=== PATIENT | male | born 1990 | race African-American/Black ===

== ENCOUNTER → 2016-08-09 | Emergency (ER) | payer MEDICAID, OTHER ==
[~2016-08-09] VITALS: Ht 188 cm; Wt 78.5 kg
[~2016-08-09] MED LIST: INSU100C SQ; INSU200I SQ; INSULIN LISPRO 100 UNIT/ML VIAL SC STA; LACTATED RINGER'S 1,000 ML IV STA; LANT3I SC; SOD CHLORIDE 0.9% 2,000 ML IV STA
[2016-08-09 18:29] VITALS: Ht 188 cm; Wt 78.5 kg
[2016-08-09 19:34] LABS: ADD SCAN DIFF NO
[2016-08-09 19:41] LABS: BASOPHILS % 0.2 % (0.0-2.0); EOSINOPHILS # 0.1 10^3/ul (0.0-0.5); HEMATOCRIT 39.8 % (42.0-52.0); HEMOGLOBIN 14.1 g/dl (14.0-18.0); LYMPHOCYTES # 1.9 10^3/ul (0.8-2.9); MEAN CORPUSCULAR HEMOGLOBIN 30.6 pg (29.0-33.0); MEAN CORPUSCULAR HGB CONC 35.4 g/dl (32.0-37.0); MEAN CORPUSCULAR VOLUME 86.3 fl (82.0-101.0); MEAN PLATELET VOLUME 10.3 fl (7.4-10.4); MONOCYTE # 0.4 10^3/ul (0.3-0.9); MONOCYTES % 6.2 % (0.0-11.0); NEUTROPHIL # 3.8 10^3/ul (1.6-7.5); NEUTROPHILS % 61.3 % (39.0-77.0); PLATELET COUNT 293 10^3/UL (140-415); RED BLOOD COUNT 4.61 10^6/ul (4.70-6.10); RED CELL DISTRIBUTION WIDTH 11.3 % (11.5-14.5); WHITE BLOOD COUNT 6.1 10^3/ul (4.8-10.8)
[2016-08-09 19:51] LABS: POTASSIUM 5.1 mmol/L (3.5-5.1)
[2016-08-09 19:53] LABS: CREATININE 0.85 mg/dl (0.61-1.24)
[2016-08-09 19:54] LABS: CALCIUM 9.3 mg/dl (8.4-10.2)
--- NOTE | 2016-08-09 20:36 | ERD ---
ER Documentation Chief Complaint Date/Time DATE: 08/09/16 TIME: 20:34 Chief Complaint states blood sugar high, last insulin use at 12 noon HPI Patient is a 26-year-old male with diabetes who presents with high blood sugar. The patient says that his sugar is high. He has not had any insulin today and said that he did eat 2 hours ago. He said that he ran out of insulin earlier today. Upon review of old medical records the patient does have one previous visit to the ER for high sugar. He does not currently have a primary doctor. He said that he usually takes Humalog 15 units with meals. ROS All systems reviewed and are negative except as per history of present illness. Medications Home Meds Active Scripts Insulin Lispro (Humalog Kwikpen) 200 Unit/1 Ml Insuln.pen, 15 UNIT SQ AC MEALS, #1 EA Prov:BEENA CHIU MD 08/09/16 Reported Medications Insulin Lispro (Humalog) 100 Unit/1 Ml Cartridge, 15 UNIT SQ AC MEALS 08/09/16 Insulin Glargine* (Lantus*) 100 Unit/Ml Soln, 24 UNIT SC QHS, #1 VIAL 04/14/16 Discontinued Reported Medications Insulin Lispro (Humalog Kwikpen) 200 Unit/1 Ml Insuln.pen, 15 UNIT SQ AC MEALS, EA THREE TIMES DAILY 04/14/16 Discontinued Scripts Insulin Lispro (Humalog) 100 Unit/1 Ml Cartridge, 100 UNIT SQ BEFORE MEALS, #5 Prov:GHAZAL MANZANARES DO 04/14/16 Allergies Allergies: Coded Allergies: No Known Allergy (Unverified , 08/09/16) PMhx/Soc Medical and Surgical Hx: pt denies Surgical Hx History of Surgery: No Anesthesia Reaction: No Hx Neurological Disorder: No Hx Respiratory Disorders: No Hx Cardiac Disorders: No Hx Psychiatric Problems: No Hx Miscellaneous Medical Probl: Yes (DM) Hx Alcohol Use: No Hx Substance Use: No Hx Tobacco Use: No Smoking Status: Current some day smoker FmHx Family History: No diabetes Physical Exam Vitals Vital Signs Date Time Temp Pulse Resp B/P Pulse Ox O2 Delivery O2 Flow Rate FiO2 08/09/16 19:36 97.0 82 20 135/95 96 Room Air 08/09/16 18:29 97.0 93 20 152/110 98 Physical Exam Const: No acute distress Head: Atraumatic Eyes: Normal Conjunctiva ENT: Normal External Ears, Nose and Mouth. Neck: Full range of motion..~ No meningismus. Resp: Clear to auscultation bilaterally Cardio: Regular rate and rhythm, no murmurs Abd: Soft, non tender, non distended. Normal bowel sounds Skin: No petechiae or rashes Back: No midline or flank tenderness Ext: No cyanosis, or edema Neur: Awake and alert Psych: Normal Mood and Affect Result Diagram: 08/09/16191908/09/161919 Results 24 hrs Laboratory Tests Test 08/09/16 18:33 08/09/16 19:20 Bedside Glucose > 595mg/dL Anion Gap 17 Basophils # 0.010^3/ul Basophils % 0.2% Blood Urea Nitrogen 26mg/dl Calcium Level 9.3mg/dl Carbon Dioxide Level 26mmol/L Chloride Level 90mmol/L Creatinine 0.85mg/dl Eosinophils # 0.110^3/ul Eosinophils % 1.0% Glucose Level 745mg/dl Hematocrit 39.8% Hemoglobin 14.1g/dl Lactic Acid Level 1.1mmol/L Lymphocytes # 1.910^3/ul Lymphocytes % 31.0% Mean Corpuscular Hemoglobin 30.6pg Mean Corpuscular Hemoglobin Concent 35.4g/dl Mean Corpuscular Volume 86.3fl Mean Platelet Volume 10.3fl Monocytes # 0.410^3/ul Monocytes % 6.2% Neutrophils # 3.810^3/ul Neutrophils % 61.3% Nucleated Red Blood Cells # 0.010^3/ul Nucleated Red Blood Cells % 0.0/100WBC Platelet Count 16402^3/UL Potassium Level 5.1mmol/L Red Blood Count 4.6110^6/ul Red Cell Distribution Width 11.3% Sodium Level 128mmol/L White Blood Count 6.110^3/ul Current Medications Medications (Trade) Dose Ordered Sig/Dottie Route PRN Reason Start Time Stop Time Status Last Admin Dose Admin Sodium Chloride 2,000 ml @ 1,000 mls/hr Q2H STAT IV 08/09/16 19:08 08/09/16 21:07 08/09/16 19:30 Lactated Ringer's (Lr) 1,000 ml @ 1,000 mls/hr Q1H STAT IV 08/09/16 19:08 08/09/16 20:07 DC Insulin Human Lispro (Humalog) 20 unit ONCE STAT SC 08/09/16 20:17 08/09/16 20:18 DC 08/09/16 20:32 Procedures/MDM Patient is a 26-year-old male with diabetes who presents with acute hyperglycemia. His laboratory studies did not show any signs of diabetic ketoacidosis. He has pseudohyponatremia from elevated sugar. The patient will be given 2 L of normal saline 1 L of lactated Ringer's as well as 20 units of subcutaneous Humalog. His sugar will be rechecked and then he will be discharged home. At this point I doubt diabetic ketoacidosis. The patient is well-appearing and well-hydrated. The patient will need to take his insulin as prescribed and I will give him a prescription for Humalog. The patient can return sooner for any worsening symptoms. He should follow-up with the local clinics within 24-48 hours for reevaluation. Departure Diagnosis: Primary Impression: Hyperglycemia Additional Impression: Hyponatremia Condition: Fair Patient Instructions: Hyperglycemia (High Blood Sugar) Referrals: [facility] YOU HAVE RECEIVED A MEDICAL SCREENING EXAM AND THE RESULTS INDICATE THAT YOU DO NOT HAVE A CONDITION THAT REQUIRES URGENT TREATMENT IN THE EMERGENCY DEPARTMENT. FURTHER EVALUATION AND TREATMENT OF YOUR CONDITION CAN WAIT UNTIL YOU ARE SEEN IN YOUR DOCTORS OFFICE WITHIN THE NEXT 1-2 DAYS. IT IS YOUR RESPONSIBILITY TO MAKE AN APPOINTMENT FOR FOLOW-UP CARE. IF YOU HAVE A PRIMARY DOCTOR --you should call your primary doctor and schedule an appointment IF YOU DO NOT HAVE A PRIMARY DOCTOR YOU CAN CALL OUR PHYSICIAN REFERRAL HOTLINE AT IF YOU CAN NOT AFFORD TO SEE A PHYSICIAN YOU CAN CHOSE FROM THE FOLLOWING [facility] [address] [facility]. [facility] [address] [facility]. [facility] [address] [facility]. [facility] [address] [facility]. [facility] [address] [facility]. [facility]. [address] Additional Instructions: Call your primary care doctor TOMORROW for an appointment during the next 1-2 days.See the doctor sooner or return here if your condition worsens before your appointment time. BEENA CHIU MD Aug 09, 2016 20:36
[2016-08-09 20:48] LABS: ADD UMIC NO; URINE BILIRUBIN (Dip) NEGATIVE (NEGATIVE); URINE BLOOD (Dip) NEGATIVE (NEGATIVE); URINE COLOR LT. YELLOW (YELLOW); URINE GLUCOSE (Dip) >=1000 % (NEGATIVE); URINE KETONES (Dip) NEGATIVE (NEGATIVE); URINE LEUKOCYTE ESTERASE (Dip) NEGATIVE (NEGATIVE); URINE NITRITE (Dip) NEGATIVE (NEGATIVE); URINE TOTAL PROTEIN (Dip) NEGATIVE (NEGATIVE); URINE UROBILINOGEN (Dip) 0.2 E.U./dL (0.1-1.0)
[2016-08-09 22:50] VITALS: BP 133/90; PULSE 89; RESP 20; TEMP 97
== END | disposition home or self-care (01) ==
LOC: E/R 18:19
DX: E11.65 Type 2 diabetes mellitus with hyperglycemia (principal); E87.1 Hypo-osmolality and hyponatremia; F17.210 Nicotine dependence, cigarettes, uncomplicated; Z79.4 Long term (current) use of insulin
CPT/HCPCS: 80048; 81003; 82962; 83605; 85025; J1815; J7030; J7120; 36415; 96372

== ENCOUNTER 2016-09-04 19:26 | Emergency (ER) | payer OTHER ==
[~2016-09-04] VITALS: Ht 188 cm; Wt 76.0 kg
[~2016-09-04 19:26] MED LIST changes: -INSULIN LISPRO 100 UNIT/ML VIAL SC STA; -LACTATED RINGER'S 1,000 ML IV STA; -SOD CHLORIDE 0.9% 2,000 ML IV STA
[2016-09-04 20:00] VITALS: Ht 188 cm; Wt 76.0 kg
[2016-09-04] MEDS ORDERED: INSU200I SQ (21:14)
--- NOTE | 2016-09-04 21:18 | ERD ---
ER Documentation Chief Complaint Date/Time DATE: 09/04/16 TIME: 21:16 Chief Complaint Insulin med refill HPI 26-year-old male presents here in emergency department for refill of his insulin , patient run out of this medication today, last dose of insulin was this morning. Patient also ate tonight. Patient denies any other symptoms. Patient denies any abdominal pain, nausea or vomiting, weakness, dizziness, patient denies any fever or chills. Patient denies hematuria or dysuria. Patient denies any other symptoms. Patient is here for refill of medication. Patient does not have any primary care doctor at this time. ROS All systems reviewed and are negative except as per history of present illness. Medications Home Meds Active Scripts Insulin Lispro (Humalog Kwikpen) 200 Unit/1 Ml Insuln.pen, 15 UNIT SQ AC MEALS, #1 EA Prov:MARCELL DE LA FUENTE [employer] 09/04/16 Reported Medications Insulin Lispro (Humalog) 100 Unit/1 Ml Cartridge, 15 UNIT SQ AC MEALS 08/09/16 Insulin Glargine* (Lantus*) 100 Unit/Ml Soln, 24 UNIT SC QHS, #1 VIAL 04/14/16 Allergies Allergies: Coded Allergies: No Known Allergy (Unverified , 08/09/16) PMhx/Soc History of Surgery: No Anesthesia Reaction: No Hx Neurological Disorder: No Hx Respiratory Disorders: No Hx Cardiac Disorders: No Hx Psychiatric Problems: No Hx Miscellaneous Medical Probl: Yes (DM type 1) Hx Alcohol Use: No Hx Substance Use: Yes (marijuana last used 08/08/2016) Hx Tobacco Use: Yes FmHx Family History: No coronary disease, No diabetes, No other Physical Exam Vitals Vital Signs Date Time Temp Pulse Resp B/P Pulse Ox O2 Delivery O2 Flow Rate FiO2 09/04/16 20:00 97.3 95 18 110/71 97 Physical Exam GENERAL: The patient is well developed and appropriate for usual state of health, in no apparent distress. CHEST: Clear to auscultation bilaterally. There are no rales, wheezes or rhonchi. HEART: Regular rate and rhythm. No murmurs, clicks, rubs or gallops. No S3 or S4. ABDOMEN: Soft, nontender and nondistended. Good bowel sounds. No rebound or guarding. No gross peritonitis. No gross organomegaly or masses. No Pittman sign or McBurney point tenderness. BACK: No midline or flank tenderness. EXTREMITIES: Equal pulses bilaterally. There is no peripheral clubbing, cyanosis or edema. No focal swelling or erythema. Full range of motion. Grossly neurovascularly intact. NEURO: Alert and oriented. Cranial nerves 2-12 intact. Motor strength in all 4 extremities with 5/5 strength. Sensation grossly intact. Normal speech and gait. SKIN: There is no apparent rash or petechia. The skin is warm and dry. HEMATOLOGIC AND LYMPHATIC: There is no evidence of excessive bruising or lymphedema. No gross cervical, axillary, or inguinal lymphadenopathy. Results 24 hrs Laboratory Tests Test 09/04/16 21:00 Bedside Glucose 336mg/dL Procedures/MDM Medical decision making: Patient is here for medication refill, this was refilled, blood sugar was checked, stable at this time. Patient appear appropriate for outpatient management. No evidence at this time of diabetic ketoacidosis, hyperosmolar syndrome, or severe systemic infection. Patient was given resources were to go, list of clinics for him to follow-up and to establish primary care, patient was given 1 bottle of refill of his insulin medication. Patient was advised to return to emergency department for diabetic ketoacidosis symptoms or any other worsening symptoms Departure Diagnosis: Primary Impression: Encounter for medication refill Additional Impression: Hyperglycemia Condition: Stable Patient Instructions: Taking Medicine Safely, Hyperglycemia (High Blood Sugar) Referrals: [facility] YOU HAVE RECEIVED A MEDICAL SCREENING EXAM AND THE RESULTS INDICATE THAT YOU DO NOT HAVE A CONDITION THAT REQUIRES URGENT TREATMENT IN THE EMERGENCY DEPARTMENT. FURTHER EVALUATION AND TREATMENT OF YOUR CONDITION CAN WAIT UNTIL YOU ARE SEEN IN YOUR DOCTORS OFFICE WITHIN THE NEXT 1-2 DAYS. IT IS YOUR RESPONSIBILITY TO MAKE AN APPOINTMENT FOR [facility]. IF YOU HAVE A PRIMARY DOCTOR --you should call your primary doctor and schedule an appointment IF YOU DO NOT HAVE A PRIMARY DOCTOR YOU CAN CALL OUR PHYSICIAN REFERRAL HOTLINE AT IF YOU CAN NOT AFFORD TO SEE A PHYSICIAN YOU CAN CHOSE FROM THE FOLLOWING [facility] [address] [facility] [address] [facility]. [facility] [address] [facility] [address] [facility]. [facility] [address] [facility]. [facility]. [address] [facility]. [facility] YOU HAVE RECEIVED A MEDICAL SCREENING EXAM AND THE RESULTS INDICATE THAT YOU DO NOT HAVE A CONDITION THAT REQUIRES URGENT TREATMENT IN THE EMERGENCY DEPARTMENT. FURTHER EVALUATION AND TREATMENT OF YOUR CONDITION CAN WAIT UNTIL YOU ARE SEEN IN YOUR DOCTORS OFFICE WITHIN THE NEXT 1-2 DAYS. IT IS YOUR RESPONSIBILITY TO MAKE AN APPOINTMENT FOR FOLOW-UP CARE. IF YOU HAVE A PRIMARY DOCTOR --you should call your primary doctor and schedule and appointment IF YOU DO NOT HAVE A PRIMARY DOCTOR YOU CAN CALL OUR PHYSICIAN REFERRAL HOTLINE AT . IF YOU CAN NOT AFFORD TO SEE A PHYSICIAN YOU CAN CHOSE FROM THE FOLLOWING [facility] INSTITUTIONS[facility] [address] [place] [address] [facility] [address] [place] [address] [facility] [address] [place] [address] [facility] MARCELL DE LA FUENTE NP Sep 04, 2016 21:18
== END 2016-09-04 21:16 | disposition home or self-care (01) ==
LOC: FTE 19:26 → E/R 21:16
DX: Z76.0 Encounter for issue of repeat prescription (principal); E10.65 Type 1 diabetes mellitus with hyperglycemia; Z79.4 Long term (current) use of insulin; Z87.891 Personal history of nicotine dependence
CPT/HCPCS: 82962; Z7502; 99281